=== PATIENT | female | born 1980 | race American Indian/Alaskan Native ===

== ENCOUNTER 2016-05-14 12:01 | Emergency (ER) | payer SELFPAY ==
--- NOTE | 2016-05-14 12:48 | Emergency Department Report ---
Chief Complaint: Dizziness Stated Complaint: DIZZINESS Time Seen by Provider: 05/14/16 12:44 - HPI History of Present Illness: Patient is a 35 y/o female with h/o TIA who presents due to dizziness, headache , blurred vision 2 years. Patient states that symptoms were more sporadic but they have become more frequently. Patient denies any chest pain or SOB. Patient denies any extremity weakness. - ROS Review of Systems: positive headache, blurred vision, dizziness, no chest pain, SOB - Exam Vital Signs: Vital Signs 05/14/16 12:12 Temperature 98.5 F Pulse Rate 73 Respiratory 20 Rate Blood Pressure 107/77 O2 Sat by Pulse 99 Oximetry Physical Exam: nad MSE screening note: Focused history and physical exam performed. Due to findings the following was ordered: CBC, cmp, UA ED Disposition for MSE Condition: Stable
[2016-05-14 13:09] LABS: Basophils % (Auto) 0.8 % (0.0-1.8); Eosinophils % (Auto) 0.6 % (0.0-4.3); Hematocrit 35.4 % (30.3-42.9); Hemoglobin 11.9 gm/dl (10.1-14.3); Mean Corpuscular HGB Conc 34 % (30-34); Mean Corpuscular Hemoglobin 32 pg (28-32); Mean Corpuscular Volume 95 fl (79-97); Platelet Count 357 K/mm3 (140-440); Red Blood Count 3.73 M/mm3 (3.65-5.03); Red Cell Distribution Width 12.2 % (13.2-15.2); White Blood Count 8.3 K/mm3 (4.5-11.0)
[2016-05-14 13:32] LABS: Albumin/Globulin Ratio 1.3 %; Alkaline Phosphatase 44 units/L (35-129); Anion Gap 16 mmol/L; BUN/Creatinine Ratio 16.66; Bilirubin,Total 0.3 mg/dL (0.1-1.2); Blood Urea Nitrogen 10 mg/dL (7-17); Calcium 8.7 mg/dL (8.4-10.2); Carbon Dioxide 26 mmol/L (22-30); Chloride 101.6 mmol/L (98-107); Cholesterol 217 mg/dL (50-199); Glucose 86 mg/dL (65-100); HDL Cholesterol 75 mg/dL (40-59); LDL Cholesterol,Direct 119 mg/dL (50-130); Potassium 3.7 mmol/L (3.6-5.0); Sodium 140 mmol/L (137-145); Total Protein 7.1 g/dL (6.3-8.2); Triglycerides 115 mg/dL (2-149)
[2016-05-14 13:33] LABS: Alanine Aminotransferase < 5 units/L (7-56)
[2016-05-14 16:32] LABS: Bilirubin,Urine NEG (Negative); Blood,Urine MOD (Negative); Ketones,Urine NEG (Negative); Leukocyte Esterase,Urine TR (Negative); Mucus,Urine 3+ /HPF; Nitrite,Urine NEG (Negative); Protein,Urine <15 mg/dL mg/dL (Negative); Urobilinogen,Urine < 2.0 mg/dL (<2.0)
[2016-05-14 20:05] VITALS: BP 114/72
--- NOTE | 2016-05-14 20:27 | Emergency Department Report ---
HPI - General Chief Complaint: Dizziness Time Seen by Provider: 05/14/16 20:01 - HPI HPI: This is a 35-year-old Afro-[place]i female presents to the emergency department with complaint of dizziness, lightheadedness, intermittent blurry vision that has been going on for the past 2 years but has worsened recently. The patient is concerned as she says she had a TIA in 2007. She has a past medical history of this TIA as well as high cholesterol. She does not have a primary care doctor despite having [employer] insurance. She drove herself in to be seen today. She denies any slurred speech, chest pain, problems with movement or ambulation, shortness of breath, fever, nausea or vomiting. She does complain of some intermittent sharp headaches that start in the front of her head and moved towards the back. She is not taken anything for symptoms prior to presentation. No recent travel or sick contacts at home. 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) Additional medical history: high cholesterol - Surgical History Past Surgical History?: Yes Additional Surgical History: Myomectomy , Ovarian cyst removed, Polypectomy - Social History Smoking Status: Former Smoker Substance Use Type: Alcohol, Non Opiate Pain, Prescribed - Medications Home Medications: Home Medications Medication Instructions Recorded Confirmed Last Taken Type No Known Home Medications [No 05/14/16 05/14/16 Unknown History Reported Home Medications] ED Review of Systems ROS: Stated complaint: DIZZINESS Other details as noted in HPI Comment: All other systems reviewed and negative Constitutional: denies: chills, fever Eyes: vision change (intermittent blurry vision). denies: eye pain, eye discharge ENT: denies: ear pain, throat pain Respiratory: denies: cough, shortness of breath, wheezing Cardiovascular: denies: chest pain, palpitations Gastrointestinal: denies: abdominal pain, nausea, diarrhea Genitourinary: denies: urgency, dysuria, discharge Musculoskeletal: denies: back pain, joint swelling, arthralgia Skin: denies: rash, lesions Neurological: headache, other (dizziness/lightheadedness). denies: weakness, confusion Physical Exam - Physical Exam Vital Signs: Vital Signs 05/14/16 05/14/16 05/14/16 12:12 16:10 20:04 Temperature 98.5 F 97.5 F L 97.5 F L Pulse Rate 73 72 77 Respiratory 20 18 18 Rate Blood Pressure 107/77 Blood Pressure 114/80 114/72 [Right] O2 Sat by Pulse 99 100 99 Oximetry Physical Exam: GENERAL: The patient is well-developed well-nourished. HEENT: Normocephalic. Atraumatic. Extraocular motions are intact. Patient has moist mucous membranes. Pupils equal reactive to light bilaterally. Reportable horizontal nystagmus. NECK: Supple. Trachea is midline. CHEST/LUNGS: Clear to auscultation. There is no respiratory distress noted. HEART/CARDIOVASCULAR: Regular. There is no tachycardia. There is no gallop rub or murmur. ABDOMEN: Abdomen is soft, nontender. Patient has normal bowel sounds. There is no abdominal distention. SKIN: There is no rash. There is no edema. There is no diaphoresis. NEURO: The patient is awake, alert, and oriented. The patient is cooperative. The patient has no focal neurologic deficits. The patient has normal speech and gait. Cranial nerves II through XII grossly intact. No pronator drift. No dysmetria. MUSCULOSKELETAL: There is no tenderness or deformity. There is no limitation range of motion. There is no evidence of acute injury. Muscle strength 5 out of 5 for upper and lower extremity bilaterally. Cap refill less than 2 seconds. ED Course Vital Signs 05/14/16 05/14/16 05/14/16 12:12 16:10 20:04 Temperature 98.5 F 97.5 F L 97.5 F L Pulse Rate 73 72 77 Respiratory 20 18 18 Rate Blood Pressure 107/77 Blood Pressure 114/80 114/72 [Right] O2 Sat by Pulse 99 100 99 Oximetry ED Medical Decision Making - Lab Data Result diagrams: 05/14/16 13:00 05/14/16 13:00 - EKG Data -: EKG Interpreted by Al EKG shows normal: sinus rhythm, axis, intervals, QRS complexes, ST-T waves Rate: normal - EKG Data When compared to previous EKG there are: previous EKG unavailable Interpretation: normal EKG, unchanged when compared t (06/03/09) - Radiology Data Radiology results: report reviewed CT of the head does not show any acute process including no hemorrhage, mass, shift, diffuse edema or skull fracture. - Medical Decision Making This is a 35-year-old Afro-Israeli female who presents emergency Department with headache, dizziness, lightheadedness, intermittent blurry vision. Patient currently denies any the symptoms but they started about 2 years ago and have gotten progressively worse and more frequent recently. She was evaluated with physical exam, labs, imaging and EKG. Physical exam is unremarkable. She has no focal, motor or sensory deficits. Cranial nerves are intact. Heart and lungs are normal to auscultation. EKG is normal without ST elevation VA, dysrhythmia or ischemia. CT of the head does not show any bleed, shift, mass or any acute process. Patient's labs are unremarkable including no signs of infection, electrolyte abnormalities, renal insufficiency, glucose abnormalities. She had a negative troponin and normal thyroid function. Patient has [employer] insurance and will follow-up with them for a primary care doctor and neurologist. She will return to the ER with any worsening of her symptoms or any acute distress. - Differential Diagnosis TIA, vertigo, complex migraine, malignancy, dysrhythmia Critical Care Time: No Critical care attestation.: If time is entered above; I have spent that time in minutes in the direct care of this critically ill patient, excluding procedure time. ED Disposition Clinical Impression: Dizziness, Lightheaded Headache Qualifiers: Headache type: unspecified Headache chronicity pattern: episodic headache Intractability: not intractable Qualified Code(s): R51 - Headache Disposition: DISCHARGED TO HOME OR SELFCARE Is pt being admited?: No Does the pt Need Aspirin: No Condition: Stable Instructions: Acute Headache (ED), Lightheadedness (ED), Dizziness (ED), Blurred Vision (ED) Additional Instructions: Please follow-up through [facility] for a primary care doctor, neurologist, radio equipment repairer. Return to the emergency department with any worsening of your symptoms or any acute distress. Referrals: [facility] [Other] - 3-5 Days Time of Disposition: 21:26
--- NOTE | 2016-05-14 21:13 | Cat Scan Report ---
FINAL REPORT PROCEDURE: CT HEAD/BRAIN WO CON TECHNIQUE: Computerized tomography of the head was performed without contrast material. HISTORY: Dizziness COMPARISON: No prior studies are available for comparison. FINDINGS: Skull and scalp: Normal. Paranasal sinuses: Normal. Ventricles and subarachnoid spaces: Normal. Cerebrum: No evidence of hemorrhage, acute infarction or mass . Cerebellum and brainstem: No evidence of hemorrhage, acute infarction or mass. Vasculature: Normal. Comments: None. IMPRESSION: Overall negative CT brain without contrast with no CT evidence of intracranial hemorrhage or edema or shift or infarct or distinct acute finding.
== END 2016-05-14 21:35 | disposition home or self-care (01) ==
LOC: ED 12:01
DX: R42 Dizziness and giddiness (principal); R51 Headache; E78.00 Pure hypercholesterolemia, unspecified; Z86.73 Personal history of transient ischemic attack (TIA), and cerebral infarction without residual deficits; Z87.891 Personal history of nicotine dependence
CPT/HCPCS: 36415; 70450; 80053; 80061; 81001; 81025; 84443; 85025; 93005; 93010